=== PATIENT | female | born 1970 | race Caucasian/White ===

== ENCOUNTER → 2017-04-19 | Outpatient (CLI) | payer BC ==
--- NOTE | 2017-04-19 14:24 | MAMMOGRAPHY REPORT ---
BILATERAL DIGITAL SCREENING MAMMOGRAM TOMOSYNTHESIS WITH CAD: 04/19/2017 CLINICAL HISTORY: Routine screening. Patient has no complaints. TECHNIQUE: Breast tomosynthesis in addition to standard 2D mammography was performed. Current study was also evaluated with a Computer Aided Detection (CAD) system. COMPARISON: Comparison is made to exams dated: 04/26/2016 mammogram, 04/26/2016 ultrasound, 04/18/2016 ovidio mogram, 04/15/2015 mammogram, 04/13/2014 mammogram, and 04/01/2013 mammogram - [facility]. BREAST COMPOSITION: The tissue of both breasts is heterogeneously dense, which may obscure small mas ses. FINDINGS: No suspicious masses, calcifications, or areas of architectural distortion are noted in ei ther breast. There has been no significant interval change compared to prior exams. IMPRESSION: ACR BI-RADS CATEGORY 1: NEGATIVE There is no mammographic evidence of malignancy. A 1 year screening mammogram is recommended. The pa tient will receive written notification of the results. Approximately 10% of breast cancers are not detected with mammography. A negative mammographic report should not delay biopsy if a clinically suggestive mass is present. Nafisa Childers M.D. ah/:04/19/2017 12:12:47 Clin Nurse Spec: Laurel MEDINA(Sangeetha)(M), [facility] letter sent: Normal 1/2 BI-RADS Code: ACR BI-RADS Category 1: Negative
== END | disposition home or self-care (01) ==
LOC: C.MAMM 08:30
PROVIDERS: ATTEND Family Medicine
DX: Z12.31 Encounter for screening mammogram for malignant neoplasm of breast (principal)

== ENCOUNTER → 2018-07-01 | Outpatient (CLI) | payer OTHER ==
--- NOTE | 2018-07-01 14:57 | MAMMOGRAPHY REPORT ---
UNILATERAL RIGHT DIGITAL DIAGNOSTIC MAMMOGRAM TOMOSYNTHESIS WITH CAD AND RIGHT ULTRASOUND: 07/01/2018 CLINICAL HISTORY: 48-year-old woman presents with a new palpable tender dime sized lump in the right upper outer quadrant. No skin thickening, erythema or nipple discharge. Family history of breast canc er = mother. TECHNIQUE: Right breast CC and MLO 2D and tomosynthesis images were obtained. Current study was also evaluated with a Computer Aided Detection (CAD) system. COMPARISON: Comparison is made to exams dated: 04/22/2018 mammogram, 04/19/2017 mammogram, 04/26/2016 mamm ogram, 04/18/2016 mammogram, 04/15/2015 mammogram, and 04/26/2016 ultrasound - [facility] BREAST COMPOSITION: The tissue of right breast is heterogeneously dense, which may obscure small mass es. FINDINGS: A triangular palpable marker was placed on the skin of the right upper outer breast. The g landular tissue pattern is similar to numerous prior mammograms. No obvious new masses, asymmetries, areas of architectural distortion or calcifications are seen. No focal skin thickening or nipple re traction. Targeted ultrasound was performed in the area of palpable lump pointed out by the patient, in the 10: 00 right breast, 2-3 cm from the nipple. On palpation, there is a firm plateau of tissue approximate ly 1 cm in diameter. Targeted ultrasound performed directly over this area demonstrates a peak of gl andular tissue extending superficially near the dermis between 2 prominent fat lobules, likely explai maciel the palpable lump. Incidental note is made of 2 adjacent anechoic simple cysts in the 9:30 righ t breast, 2 cm from the nipple, measuring 6 x 5 x 8 mm. There is no evidence of a suspicious solid m ass, focal skin thickening or drainable fluid collection. No targeted sonographic evidence of malign fern. IMPRESSION: ACR BI-RADS CATEGORY 2: BENIGN, ULTRASOUND ACR BI-RADS CATEGORY 2: BENIGN 1. There is no new suspicious mammographic or targeted sonographic abnormality to explain the tender palpable lump in the right upper outer quadrant. A plateau of dense glandular tissue extends betwee n 2 prominent fat lobules in the area of concern, likely explaining the palpable lump. 2. Conservative management options were discussed with regard to breast pain including: Hot compress es, NSAIDs, mineral supplements and evening primrose oil. 3. Continued clinical monitoring and clinical follow-up is recommended. Otherwis would also recomme nd routine screening mammography in April 2019. Some breast cancers are not detected with mammography. A negative mammographic report should not balta y biopsy if a clinically suggestive mass is present. Julia Muse M.D. ay/:07/01/2018 10:56:02 Upstairs Maid: RT Eusebia(R)(M), [facility] letter sent: Normal 1/2 OVERALL STUDY BIRADS: 2 Benign
== END | disposition home or self-care (01) ==
LOC: C.MAMM 10:07
PROVIDERS: ATTEND Family Medicine
DX: N63.11 Unspecified lump in the right breast, upper outer quadrant (principal)